=== PATIENT | male | born 1995 | race Hispanic/Latino ===

== ENCOUNTER 2022-10-25 23:08 | Emergency (ER) | payer OTHER ==
[~2022-10-25] VITALS: Ht 167.6 cm; Wt 78.5 kg
[2022-10-25 23:14] VITALS: BP 121/55
[2022-10-26] MEDS ORDERED: IBUP-1493 PO (00:42)
== END 2022-10-26 01:03 | disposition home or self-care (01) ==
LOC: EDH 23:08
DX: B34.9 Viral infection, unspecified (principal); F17.200 Nicotine dependence, unspecified, uncomplicated; Z88.8 Allergy status to other drugs, medicaments and biological substances; Z20.822 Contact with and (suspected) exposure to COVID-19
CPT/HCPCS: 99283; 87635; 87804 ×2; C9803